=== PATIENT | male | born 1940 | race Caucasian/White ===

== ENCOUNTER 2022-07-05 18:13 | Emergency (ER) | payer OTHER, MEDICARE, MEDICAID ==
[2022-07-05] MEDS ORDERED: Sodium Chloride 0.9% 500 ML ONE ×2 (18:57→20:24)
[2022-07-05] MEDS ORDERED: Fentanyl 100 MCG/2 ML VIAL ONE (18:57)
[2022-07-05 19:30] LABS: Band 3 % (5-11); Eosinophils 3 % (0-10); Giant Platelets SLIGHT; Hemoglobin 14.1 g/dL (14.0-18.0); Large Platelets SLIGHT; Lymphocytes 5 % (21-51); MDiff Complete? YES; Mean Corpuscular HGB CONC 32.1 g/dL (32.0-36.0); Mean Corpuscular Hemoglobin 31.1 pg (27.0-31.0); Mean Platelet Volume 14.8 fL (7.4-10.4); Monocytes 6 % (0-10); Neutrophil 82 % (42-75); Platelet Count 241 thou/uL (130-400); Platelet Morphology Comment Appears Adequate; RBC Distribution Width 12.6 % (11.5-14.5); RBC Morphology Normal; Reactive Lymphocytes 1 % (0-10); Red Blood Cell (RBC) Count 4.52 mill/uL (4.70-6.10); White Blood Cell (WBC) Count 20.9 thou/uL (4.8-10.8)
[2022-07-05 19:33] LABS: ALT (SGPT) 15 U/L (8-55); AST (SGOT) 23 U/L (5-34); Alkaline Phosphatase 133 U/L (40-110); Anion Gap 17 mmol/L (10-20); BUN (Urea Nitrogen) 18 mg/dL (8.4-25.7); Bilirubin, Total 1.6 mg/dL (0.2-1.2); CK (CPK) 420 U/L (30-200); Calc. Creatinine Clearance 0 mL/min (70-130); Calcium 9.6 mg/dL (7.8-10.44); Carbon Dioxide 21 mmol/L (23-31); Chloride 107 mmol/L (98-107); Estimated GFR 58; Globulin 3.4 g/dL (2.4-3.5); Glucose 129 mg/dL (83-110); Protein, Total 7.4 g/dL (5.8-8.1); Sodium 141 mmol/L (136-145)
[2022-07-05 21:00] LABS: Bilirubin Negative (Negative); Blood, Urine Negative (Negative); Clarity Clear (Clear); Glucose, Urine (Dipstick) Negative (Negative); Ketone, Urine Negative (Negative); Leukocyte Negative (Negative); Nitrite Negative (Negative); Protein, Urine (Dipstick) Trace mg/dL (Neg-Trace); Specific Gravity, Urine 1.015 (1.005-1.030); Urobilinogen 0.2 mg/dL (Less than 2); pH, Urine 5.5 (5.0-9.0)
[2022-07-05] MEDS ORDERED: HYDROcodone/Acetaminophen 5/325 mg Tablet ONE (23:22)
== END 2022-07-05 23:34 | disposition short-term general hospital (02) ==
LOC: MADERS 18:13
DX: S72.111A Displaced fracture of greater trochanter of right femur, initial encounter for closed fracture (principal); S72.012A Unspecified intracapsular fracture of left femur, initial encounter for closed fracture; E86.0 Dehydration; R94.31 Abnormal electrocardiogram [ECG] [EKG]; I10 Essential (primary) hypertension; H54.7 Unspecified visual loss; W01.0XXA Fall on same level from slipping, tripping and stumbling without subsequent striking against object, initial encounter; Y92.009 Unspecified place in unspecified non-institutional (private) residence as the place of occurrence of the external cause; Z79.82 Long term (current) use of aspirin
CPT/HCPCS: 36415; 71045; 72170; 80053; 81003; 82550; 85025; 87086; 93005; 94760; 96361; 96374; J3010; J7030

== ENCOUNTER 2022-07-13 14:03 | Inpatient (IN) | payer MEDICARE, MEDICAID ==
[2022-07-13] MEDS ORDERED: traMADol HCl 50 MG TAB PO PRN (17:06)
[2022-07-13] MEDS: Acetaminophen 500 MG TAB PO SCH ×2 (17:50→23:29)
[2022-07-13] MEDS ORDERED: BRINZOLAMIDE 1% EA EYE SCH (21:00)
[2022-07-13] MEDS ORDERED: Timolol 0.5% Ophth Soln 5 ml Bottle EA EYE SCH ×2 (21:00)
[2022-07-13] MEDS ORDERED: Brinzolamide 1% Ophth SUSP 10 ml Bottle EA EYE SCH ×2 (21:00→22:00)
[2022-07-13] MEDS ORDERED: Brimonidine Tartrate 0.2% Ophth Soln 5 ml Bottle EA EYE SCH (21:00)
[2022-07-13] MEDS: Aspirin 81 mg Enteric Coated Tablet PO SCH (21:07)
[2022-07-13] MEDS: Melatonin 3 MG TAB PO SCH (21:07)
[2022-07-13] MEDS: [UNRECOGNIZED DRUG - OTHER] EA EYE SCH (21:10)
[2022-07-14] MEDS: Acetaminophen 500 MG TAB PO SCH ×3 (05:17→17:24)
[2022-07-14 05:21] LABS: Hemoglobin 11.7 g/dL (14.0-18.0); Mean Corpuscular HGB CONC 32.2 g/dL (32.0-36.0); Mean Corpuscular Volume 96.4 fL (78.0-98.0); Mean Platelet Volume 10.7 fL (7.4-10.4); Platelet Count 400 thou/uL (130-400); Red Blood Cell (RBC) Count 3.77 mill/uL (4.70-6.10); White Blood Cell (WBC) Count 13.3 thou/uL (4.8-10.8)
[2022-07-14 05:44] LABS: Anion Gap 15 mmol/L (10-20); BUN (Urea Nitrogen) 19 mg/dL (8.4-25.7); Calc. Creatinine Clearance 52 mL/min (70-130); Calcium 8.7 mg/dL (7.8-10.44); Carbon Dioxide 22 mmol/L (23-31); Chloride 106 mmol/L (98-107); Estimated GFR 74; Glucose 139 mg/dL (83-110); Potassium 3.5 mmol/L (3.5-5.1); Sodium 139 mmol/L (136-145)
[2022-07-14] MEDS: Aspirin 81 mg Enteric Coated Tablet PO SCH ×2 (08:48→21:38)
[2022-07-14] MEDS: [UNRECOGNIZED DRUG - OTHER] EA EYE SCH ×2 (08:49→21:38)
[2022-07-14] MEDS: Brinzolamide 1% Ophth SUSP 10 ml Bottle EA EYE SCH ×2 (08:49→21:38)
[2022-07-14] MEDS: Melatonin 3 MG TAB PO SCH (21:38)
[2022-07-15] MEDS: Acetaminophen 500 MG TAB PO SCH ×5 (00:16→23:02)
[2022-07-15] MEDS: Aspirin 81 mg Enteric Coated Tablet PO SCH ×2 (08:24→21:07)
[2022-07-15] MEDS: Ferrous Sulfate 325 MG TAB PO SCH (08:24)
[2022-07-15] MEDS: Brinzolamide 1% Ophth SUSP 10 ml Bottle EA EYE SCH ×2 (08:27→21:11)
[2022-07-15] MEDS: [UNRECOGNIZED DRUG - OTHER] EA EYE SCH ×2 (08:28→21:30)
[2022-07-15] MEDS: Melatonin 3 MG TAB PO SCH (21:07)
[2022-07-16] MEDS: Acetaminophen 500 MG TAB PO SCH ×4 (05:44→23:00)
[2022-07-16] MEDS: [UNRECOGNIZED DRUG - OTHER] EA EYE SCH ×2 (08:42→23:35)
[2022-07-16] MEDS: Brinzolamide 1% Ophth SUSP 10 ml Bottle EA EYE SCH ×2 (08:42→20:40)
[2022-07-16] MEDS: Aspirin 81 mg Enteric Coated Tablet PO SCH ×2 (08:42→20:39)
[2022-07-16] MEDS: Ferrous Sulfate 325 MG TAB PO SCH (08:42)
[2022-07-16] MEDS: Melatonin 3 MG TAB PO SCH (20:39)
[2022-07-17] MEDS: Acetaminophen 500 MG TAB PO SCH ×4 (05:30→22:42)
[2022-07-17] MEDS: Ferrous Sulfate 325 MG TAB PO SCH (08:26)
[2022-07-17] MEDS: Aspirin 81 mg Enteric Coated Tablet PO SCH ×2 (08:27→20:48)
[2022-07-17] MEDS: Brinzolamide 1% Ophth SUSP 10 ml Bottle EA EYE SCH ×2 (08:31→20:48)
[2022-07-17] MEDS: [UNRECOGNIZED DRUG - OTHER] EA EYE SCH ×2 (09:06→20:48)
[2022-07-18] MEDS: Melatonin 3 MG TAB PO PRN (01:44)
[2022-07-18] MEDS: Acetaminophen 500 MG TAB PO SCH ×4 (05:39→23:30)
[2022-07-18] MEDS: Ferrous Sulfate 325 MG TAB PO SCH (08:24)
[2022-07-18] MEDS: Aspirin 81 mg Enteric Coated Tablet PO SCH ×2 (08:24→20:21)
[2022-07-18] MEDS: [UNRECOGNIZED DRUG - OTHER] EA EYE SCH ×2 (08:25→20:22)
[2022-07-18] MEDS: Brinzolamide 1% Ophth SUSP 10 ml Bottle EA EYE SCH ×2 (08:25→20:22)
[2022-07-19] MEDS: Acetaminophen 500 MG TAB PO SCH ×3 (05:29→17:31)
[2022-07-19] MEDS: Ferrous Sulfate 325 MG TAB PO SCH (08:02)
[2022-07-19] MEDS: Aspirin 81 mg Enteric Coated Tablet PO SCH ×2 (08:02→20:58)
[2022-07-19] MEDS: Brinzolamide 1% Ophth SUSP 10 ml Bottle EA EYE SCH ×2 (08:03→20:58)
[2022-07-19] MEDS: [UNRECOGNIZED DRUG - OTHER] EA EYE SCH ×2 (08:03→20:59)
[2022-07-19] MEDS: Melatonin 3 MG TAB PO PRN (20:58)
[2022-07-20] MEDS: Acetaminophen 500 MG TAB PO SCH ×5 (00:45→23:39)
[2022-07-20] MEDS: Aspirin 81 mg Enteric Coated Tablet PO SCH ×2 (08:32→21:33)
[2022-07-20] MEDS: Brinzolamide 1% Ophth SUSP 10 ml Bottle EA EYE SCH (08:33)
[2022-07-20] MEDS: [UNRECOGNIZED DRUG - OTHER] EA EYE SCH ×2 (08:33→21:33)
[2022-07-20] MEDS: Ferrous Sulfate 325 MG TAB PO SCH (08:33)
[2022-07-20] MEDS ORDERED: Senokot S 8.6-50 MG TAB PO PRN (12:33)
[2022-07-20] MEDS ORDERED: Senokot S 8.6-50 MG TAB PO SCH (21:00)
[2022-07-20] MEDS: BRINZOLAMIDE 1% EA EYE SCH (21:33)
[2022-07-21] MEDS: Acetaminophen 500 MG TAB PO SCH ×4 (06:00→23:35)
[2022-07-21] MEDS: Aspirin 81 mg Enteric Coated Tablet PO SCH ×2 (08:31→21:10)
[2022-07-21] MEDS: Polyethylene Glycol 3350 17 GM Packet PER TUBE SCH (08:31)
[2022-07-21] MEDS: Ferrous Sulfate 325 MG TAB PO SCH (08:31)
[2022-07-21] MEDS: [UNRECOGNIZED DRUG - OTHER] EA EYE SCH ×2 (08:32→21:10)
[2022-07-21] MEDS: BRINZOLAMIDE 1% EA EYE SCH ×2 (08:32→21:10)
[2022-07-22] MEDS: Acetaminophen 500 MG TAB PO SCH ×3 (05:51→17:08)
[2022-07-22] MEDS: Aspirin 81 mg Enteric Coated Tablet PO SCH ×2 (08:48→21:25)
[2022-07-22] MEDS: Ferrous Sulfate 325 MG TAB PO SCH (08:48)
[2022-07-22] MEDS: Polyethylene Glycol 3350 17 GM Packet PER TUBE SCH (08:48)
[2022-07-22] MEDS: BRINZOLAMIDE 1% EA EYE SCH ×2 (08:56→21:20)
[2022-07-22] MEDS: [UNRECOGNIZED DRUG - OTHER] EA EYE SCH (08:56)
[2022-07-22] MEDS: Timolol 0.5% Ophth Soln 5 ml Bottle EA EYE SCH (21:23)
[2022-07-23] MEDS: Brimonidine Tartrate 0.2% Ophth Soln 5 ml Bottle EA EYE SCH ×3 (00:51→20:10)
[2022-07-23] MEDS: Acetaminophen 500 MG TAB PO SCH ×5 (00:52→22:59)
[2022-07-23] MEDS: Ferrous Sulfate 325 MG TAB PO SCH (08:18)
[2022-07-23] MEDS: Aspirin 81 mg Enteric Coated Tablet PO SCH ×2 (08:18→20:09)
[2022-07-23] MEDS: BRINZOLAMIDE 1% EA EYE SCH ×2 (08:18→20:23)
[2022-07-23] MEDS: Polyethylene Glycol 3350 17 GM Packet PER TUBE SCH (08:24)
[2022-07-23] MEDS: Timolol 0.5% Ophth Soln 5 ml Bottle EA EYE SCH ×2 (10:53→20:22)
[2022-07-23] MEDS: Melatonin 3 MG TAB PO PRN (23:00)
[2022-07-24 05:29] LABS: #Basophils 0.1 thou/uL (0.0-0.2); #Eosinphils 0.4 thou/uL (0.0-0.7); #Lymphocytes 3.7 thou/uL (1.20-3.40); #Monocytes 1.4 thou/uL (0.11-0.59); #Neutrophils 5.6 thou/uL (1.40-6.50); %Basophils 1.3 % (0.0-1.0); %Eosinophils 3.7 % (0.0-10.0); %Lymphocytes 32.5 % (21.0-51.0); %Monocytes 12.8 % (0.0-10.0); %Neutrophils 49.8 % (42.0-75.0); Hemoglobin 11.3 g/dL (14.0-18.0); Mean Corpuscular HGB CONC 31.9 g/dL (32.0-36.0); Mean Corpuscular Hemoglobin 31.7 pg (27.0-31.0); Mean Corpuscular Volume 99.6 fL (78.0-98.0); Mean Platelet Volume 12.4 fL (7.4-10.4); Platelet Count 306 thou/uL (130-400); RBC Distribution Width 15.1 % (11.5-14.5); Red Blood Cell (RBC) Count 3.54 mill/uL (4.70-6.10); White Blood Cell (WBC) Count 11.3 thou/uL (4.8-10.8)
[2022-07-24] MEDS: Acetaminophen 500 MG TAB PO SCH ×4 (06:29→23:59)
[2022-07-24] MEDS: Aspirin 81 mg Enteric Coated Tablet PO SCH ×2 (08:52→21:00)
[2022-07-24] MEDS: Polyethylene Glycol 3350 17 GM Packet PER TUBE SCH (08:52)
[2022-07-24] MEDS: Brimonidine Tartrate 0.2% Ophth Soln 5 ml Bottle EA EYE SCH ×2 (08:52→21:00)
[2022-07-24] MEDS: Ferrous Sulfate 325 MG TAB PO SCH (08:52)
[2022-07-24] MEDS: BRINZOLAMIDE 1% EA EYE SCH ×2 (08:54→21:01)
[2022-07-24] MEDS: Timolol 0.5% Ophth Soln 5 ml Bottle EA EYE SCH ×2 (08:54→21:02)
[2022-07-24] MEDS ORDERED: Amlodipine 5 MG TAB PO SCH (13:00)
[2022-07-24] MEDS: Melatonin 3 MG TAB PO PRN (21:00)
[2022-07-25] MEDS: Acetaminophen 500 MG TAB PO SCH ×3 (05:26→17:28)
[2022-07-25] MEDS: Amlodipine 5 MG TAB PO SCH (08:43)
[2022-07-25] MEDS: Ferrous Sulfate 325 MG TAB PO SCH (08:43)
[2022-07-25] MEDS: Aspirin 81 mg Enteric Coated Tablet PO SCH ×2 (08:43→20:55)
[2022-07-25] MEDS: Brimonidine Tartrate 0.2% Ophth Soln 5 ml Bottle EA EYE SCH ×2 (08:44→20:55)
[2022-07-25] MEDS: Timolol 0.5% Ophth Soln 5 ml Bottle EA EYE SCH ×2 (08:44→20:55)
[2022-07-25] MEDS: Polyethylene Glycol 3350 17 GM Packet PER TUBE SCH (08:45)
[2022-07-25] MEDS: BRINZOLAMIDE 1% EA EYE SCH ×2 (08:45→20:57)
[2022-07-25] MEDS ORDERED: Amlodipine 5 MG TAB PO SCH (09:00)
[2022-07-25] MEDS: Melatonin 3 MG TAB PO PRN (20:55)
[2022-07-26] MEDS: Acetaminophen 500 MG TAB PO SCH ×4 (01:01→17:23)
[2022-07-26] MEDS: Amlodipine 5 MG TAB PO SCH (08:29)
[2022-07-26] MEDS: Aspirin 81 mg Enteric Coated Tablet PO SCH ×2 (08:29→20:00)
[2022-07-26] MEDS: Ferrous Sulfate 325 MG TAB PO SCH (08:29)
[2022-07-26] MEDS: Polyethylene Glycol 3350 17 GM Packet PER TUBE SCH (08:30)
[2022-07-26] MEDS: Brimonidine Tartrate 0.2% Ophth Soln 5 ml Bottle EA EYE SCH ×2 (08:30→20:15)
[2022-07-26] MEDS: Timolol 0.5% Ophth Soln 5 ml Bottle EA EYE SCH ×2 (08:31→21:34)
[2022-07-26] MEDS: BRINZOLAMIDE 1% EA EYE SCH ×2 (08:33→20:00)
[2022-07-26] MEDS: Melatonin 3 MG TAB PO PRN (20:00)
[2022-07-27] MEDS: Acetaminophen 500 MG TAB PO SCH ×4 (01:56→17:49)
[2022-07-27] MEDS: Amlodipine 5 MG TAB PO SCH (08:19)
[2022-07-27] MEDS: Ferrous Sulfate 325 MG TAB PO SCH (08:19)
[2022-07-27] MEDS: Timolol 0.5% Ophth Soln 5 ml Bottle EA EYE SCH ×2 (08:19→22:10)
[2022-07-27] MEDS: Brimonidine Tartrate 0.2% Ophth Soln 5 ml Bottle EA EYE SCH ×2 (08:19→20:22)
[2022-07-27] MEDS: BRINZOLAMIDE 1% EA EYE SCH ×2 (08:20→20:21)
[2022-07-27] MEDS: Polyethylene Glycol 3350 17 GM Packet PER TUBE SCH (08:20)
[2022-07-27] MEDS: Aspirin 81 mg Enteric Coated Tablet PO SCH ×2 (08:20→20:21)
[2022-07-27] MEDS: Melatonin 3 MG TAB PO PRN (20:21)
[2022-07-28] MEDS: Amlodipine 5 MG TAB PO SCH (08:08)
[2022-07-28] MEDS: Polyethylene Glycol 3350 17 GM Packet PER TUBE SCH (08:08)
[2022-07-28] MEDS: Aspirin 81 mg Enteric Coated Tablet PO SCH ×2 (08:08→20:24)
[2022-07-28] MEDS: Ferrous Sulfate 325 MG TAB PO SCH (08:08)
[2022-07-28] MEDS: BRINZOLAMIDE 1% EA EYE SCH ×2 (08:08→21:07)
[2022-07-28] MEDS: Brimonidine Tartrate 0.2% Ophth Soln 5 ml Bottle EA EYE SCH ×2 (08:41→20:24)
[2022-07-28] MEDS: Timolol 0.5% Ophth Soln 5 ml Bottle EA EYE SCH ×2 (08:49→20:49)
[2022-07-29] MEDS: Amlodipine 5 MG TAB PO SCH (08:54)
[2022-07-29] MEDS: Ferrous Sulfate 325 MG TAB PO SCH (08:55)
[2022-07-29] MEDS: BRINZOLAMIDE 1% EA EYE SCH ×2 (08:55→20:31)
[2022-07-29] MEDS: Aspirin 81 mg Enteric Coated Tablet PO SCH ×2 (08:55→20:31)
[2022-07-29] MEDS: Timolol 0.5% Ophth Soln 5 ml Bottle EA EYE SCH ×2 (08:56→20:41)
[2022-07-29] MEDS: Brimonidine Tartrate 0.2% Ophth Soln 5 ml Bottle EA EYE SCH ×2 (08:56→21:00)
[2022-07-29] MEDS: Polyethylene Glycol 3350 17 GM Packet PER TUBE SCH (08:57)
[2022-07-29] MEDS: Melatonin 3 MG TAB PO PRN (20:31)
[2022-07-30] MEDS: Ferrous Sulfate 325 MG TAB PO SCH (08:16)
[2022-07-30] MEDS: Aspirin 81 mg Enteric Coated Tablet PO SCH ×2 (08:16→20:00)
[2022-07-30] MEDS: Amlodipine 5 MG TAB PO SCH (08:16)
[2022-07-30] MEDS: Brimonidine Tartrate 0.2% Ophth Soln 5 ml Bottle EA EYE SCH ×2 (08:17→20:02)
[2022-07-30] MEDS: Timolol 0.5% Ophth Soln 5 ml Bottle EA EYE SCH ×2 (08:18→20:10)
[2022-07-30] MEDS: Polyethylene Glycol 3350 17 GM Packet PER TUBE SCH (08:19)
[2022-07-30] MEDS: BRINZOLAMIDE 1% EA EYE SCH ×2 (08:20→20:03)
[2022-07-30] MEDS: Acetaminophen 500 MG TAB PO PRN (15:01)
[2022-07-31] MEDS: Ferrous Sulfate 325 MG TAB PO SCH (08:59)
[2022-07-31] MEDS: Amlodipine 5 MG TAB PO SCH (08:59)
[2022-07-31] MEDS: Timolol 0.5% Ophth Soln 5 ml Bottle EA EYE SCH ×2 (08:59→21:05)
[2022-07-31] MEDS: Aspirin 81 mg Enteric Coated Tablet PO SCH ×2 (08:59→21:06)
[2022-07-31] MEDS: Polyethylene Glycol 3350 17 GM Packet PER TUBE SCH (09:00)
[2022-07-31] MEDS: BRINZOLAMIDE 1% EA EYE SCH ×2 (09:00→21:05)
[2022-07-31] MEDS: Brimonidine Tartrate 0.2% Ophth Soln 5 ml Bottle EA EYE SCH ×2 (09:00→21:05)
[2022-07-31] MEDS: Acetaminophen 500 MG TAB PO PRN (21:06)
[2022-08-01] MEDS: Aspirin 81 mg Enteric Coated Tablet PO SCH ×2 (08:25→21:07)
[2022-08-01] MEDS: Timolol 0.5% Ophth Soln 5 ml Bottle EA EYE SCH ×2 (08:25→21:33)
[2022-08-01] MEDS: Amlodipine 5 MG TAB PO SCH (08:25)
[2022-08-01] MEDS: Ferrous Sulfate 325 MG TAB PO SCH (08:25)
[2022-08-01] MEDS: Brimonidine Tartrate 0.2% Ophth Soln 5 ml Bottle EA EYE SCH ×2 (08:26→21:07)
[2022-08-01] MEDS: BRINZOLAMIDE 1% EA EYE SCH ×2 (08:26→21:08)
[2022-08-01] MEDS: Polyethylene Glycol 3350 17 GM Packet PER TUBE SCH (08:27)
[2022-08-01] MEDS: Melatonin 3 MG TAB PO PRN (21:07)
[2022-08-02] MEDS: Amlodipine 5 MG TAB PO SCH (08:07)
[2022-08-02] MEDS: Timolol 0.5% Ophth Soln 5 ml Bottle EA EYE SCH ×2 (08:08→20:20)
[2022-08-02] MEDS: Aspirin 81 mg Enteric Coated Tablet PO SCH ×2 (08:08→20:20)
[2022-08-02] MEDS: Brimonidine Tartrate 0.2% Ophth Soln 5 ml Bottle EA EYE SCH ×2 (08:08→20:21)
[2022-08-02] MEDS: Ferrous Sulfate 325 MG TAB PO SCH (08:08)
[2022-08-02] MEDS: BRINZOLAMIDE 1% EA EYE SCH ×2 (08:09→20:20)
[2022-08-02] MEDS: Polyethylene Glycol 3350 17 GM Packet PER TUBE SCH (08:09)
[2022-08-02] MEDS: Melatonin 3 MG TAB PO PRN (20:20)
[2022-08-02] MEDS: Acetaminophen 500 MG TAB PO PRN (20:20)
[2022-08-03] MEDS: Ferrous Sulfate 325 MG TAB PO SCH (08:10)
[2022-08-03] MEDS: Aspirin 81 mg Enteric Coated Tablet PO SCH ×2 (08:10→21:14)
[2022-08-03] MEDS: Brimonidine Tartrate 0.2% Ophth Soln 5 ml Bottle EA EYE SCH ×2 (08:11→21:13)
[2022-08-03] MEDS: Timolol 0.5% Ophth Soln 5 ml Bottle EA EYE SCH ×2 (08:11→21:13)
[2022-08-03] MEDS: BRINZOLAMIDE 1% EA EYE SCH ×2 (08:11→21:14)
[2022-08-03] MEDS: Amlodipine 5 MG TAB PO SCH (08:11)
[2022-08-03] MEDS: Polyethylene Glycol 3350 17 GM Packet PER TUBE SCH (08:14)
[2022-08-03] MEDS ORDERED: Emollient 15 oz bottle 450 ML, Triamcinolone Acetonide 200 MG TOP PRN ×2 (09:29→09:31)
[2022-08-03] MEDS ORDERED: Triple Antibiotic Oint 1 GM Packet TOP SCH ×2 (09:30→10:00)
[2022-08-03] MEDS ORDERED: Brinzolamide 1% Ophth SUSP 10 ml Bottle EA EYE SCH (21:00)
[2022-08-03] MEDS: Triple Antibiotic Oint 1 GM Packet TOP SCH (21:14)
[2022-08-03] MEDS: hydrOXYzine 25 MG TAB PO PRN (21:14)
[2022-08-03] MEDS: Emollient 15 oz bottle 450 ML, Triamcinolone Acetonide 200 MG TOP SCH (21:21)
[2022-08-04] MEDS: Ferrous Sulfate 325 MG TAB PO SCH (08:02)
[2022-08-04] MEDS: Amlodipine 5 MG TAB PO SCH (08:02)
[2022-08-04] MEDS: Brimonidine Tartrate 0.2% Ophth Soln 5 ml Bottle EA EYE SCH ×2 (08:02→20:28)
[2022-08-04] MEDS: Aspirin 81 mg Enteric Coated Tablet PO SCH ×2 (08:02→20:01)
[2022-08-04] MEDS: Triple Antibiotic Oint 1 GM Packet TOP SCH ×2 (08:02→20:01)
[2022-08-04] MEDS: BRINZOLAMIDE 1% EA EYE SCH ×2 (08:03→20:08)
[2022-08-04] MEDS: Timolol 0.5% Ophth Soln 5 ml Bottle EA EYE SCH ×2 (08:03→20:35)
[2022-08-04] MEDS: Polyethylene Glycol 3350 17 GM Packet PER TUBE SCH (08:04)
[2022-08-04] MEDS: Emollient 15 oz bottle 450 ML, Triamcinolone Acetonide 200 MG TOP SCH ×2 (08:04→20:24)
[2022-08-05] MEDS: hydrOXYzine 25 MG TAB PO PRN ×2 (02:39→22:37)
[2022-08-05] MEDS: Timolol 0.5% Ophth Soln 5 ml Bottle EA EYE SCH ×2 (08:03→20:38)
[2022-08-05] MEDS: Triple Antibiotic Oint 1 GM Packet TOP SCH ×2 (08:03→20:37)
[2022-08-05] MEDS: Ferrous Sulfate 325 MG TAB PO SCH (08:05)
[2022-08-05] MEDS: Brimonidine Tartrate 0.2% Ophth Soln 5 ml Bottle EA EYE SCH ×2 (08:05→20:37)
[2022-08-05] MEDS: Aspirin 81 mg Enteric Coated Tablet PO SCH ×2 (08:05→20:37)
[2022-08-05] MEDS: Amlodipine 5 MG TAB PO SCH (08:05)
[2022-08-05] MEDS: BRINZOLAMIDE 1% EA EYE SCH ×2 (08:06→20:47)
[2022-08-05] MEDS: Polyethylene Glycol 3350 17 GM Packet PER TUBE SCH (08:06)
[2022-08-05] MEDS: Emollient 15 oz bottle 450 ML, Triamcinolone Acetonide 200 MG TOP SCH ×2 (08:06→21:01)
[2022-08-05] MEDS: Melatonin 3 MG TAB PO PRN (22:37)
[2022-08-06] MEDS: Amlodipine 5 MG TAB PO SCH (08:37)
[2022-08-06] MEDS: Triple Antibiotic Oint 1 GM Packet TOP SCH ×2 (08:37→20:06)
[2022-08-06] MEDS: Ferrous Sulfate 325 MG TAB PO SCH (08:38)
[2022-08-06] MEDS: Timolol 0.5% Ophth Soln 5 ml Bottle EA EYE SCH ×2 (08:38→20:11)
[2022-08-06] MEDS: Aspirin 81 mg Enteric Coated Tablet PO SCH ×2 (08:38→20:06)
[2022-08-06] MEDS: Brimonidine Tartrate 0.2% Ophth Soln 5 ml Bottle EA EYE SCH ×2 (08:38→20:08)
[2022-08-06] MEDS: BRINZOLAMIDE 1% EA EYE SCH ×2 (08:39→20:15)
[2022-08-06] MEDS: Polyethylene Glycol 3350 17 GM Packet PER TUBE SCH (08:39)
[2022-08-06] MEDS: Emollient 15 oz bottle 450 ML, Triamcinolone Acetonide 200 MG TOP SCH ×2 (08:39→20:14)
[2022-08-07] MEDS: Ferrous Sulfate 325 MG TAB PO SCH (08:45)
[2022-08-07] MEDS: Amlodipine 5 MG TAB PO SCH (08:46)
[2022-08-07] MEDS: Brimonidine Tartrate 0.2% Ophth Soln 5 ml Bottle EA EYE SCH ×2 (08:47→21:07)
[2022-08-07] MEDS: Timolol 0.5% Ophth Soln 5 ml Bottle EA EYE SCH ×2 (08:48→21:13)
[2022-08-07] MEDS: Aspirin 81 mg Enteric Coated Tablet PO SCH ×2 (08:49→21:06)
[2022-08-07] MEDS: Polyethylene Glycol 3350 17 GM Packet PER TUBE SCH (08:50)
[2022-08-07] MEDS: BRINZOLAMIDE 1% EA EYE SCH ×2 (08:50→21:14)
[2022-08-07] MEDS: Emollient 15 oz bottle 450 ML, Triamcinolone Acetonide 200 MG TOP SCH ×2 (08:50→21:13)
[2022-08-07] MEDS: Triple Antibiotic Oint 1 GM Packet TOP SCH ×2 (09:37→21:14)
[2022-08-08] MEDS: Amlodipine 5 MG TAB PO SCH (08:31)
[2022-08-08] MEDS: Aspirin 81 mg Enteric Coated Tablet PO SCH ×2 (08:31→21:06)
[2022-08-08] MEDS: Polyethylene Glycol 3350 17 GM Packet PER TUBE SCH (08:31)
[2022-08-08] MEDS: Ferrous Sulfate 325 MG TAB PO SCH (08:31)
[2022-08-08] MEDS: BRINZOLAMIDE 1% EA EYE SCH ×2 (08:32→21:08)
[2022-08-08] MEDS: Triple Antibiotic Oint 1 GM Packet TOP SCH ×2 (08:32→21:09)
[2022-08-08] MEDS: Timolol 0.5% Ophth Soln 5 ml Bottle EA EYE SCH ×2 (08:33→21:07)
[2022-08-08] MEDS: Emollient 15 oz bottle 450 ML, Triamcinolone Acetonide 200 MG TOP SCH ×2 (08:34→21:07)
[2022-08-08] MEDS: Brimonidine Tartrate 0.2% Ophth Soln 5 ml Bottle EA EYE SCH ×2 (08:38→21:07)
[2022-08-08 19:58] VITALS: TEMP 98.2
[2022-08-08] MEDS: Melatonin 3 MG TAB PO PRN (21:03)
[2022-08-09 08:39] VITALS: BP 180/96
[2022-08-09] MEDS: Polyethylene Glycol 3350 17 GM Packet PER TUBE SCH (08:46)
[2022-08-09] MEDS: Brimonidine Tartrate 0.2% Ophth Soln 5 ml Bottle EA EYE SCH (08:47)
[2022-08-09] MEDS: Ferrous Sulfate 325 MG TAB PO SCH (08:47)
[2022-08-09] MEDS: Aspirin 81 mg Enteric Coated Tablet PO SCH (08:47)
[2022-08-09] MEDS: Amlodipine 5 MG TAB PO SCH (08:47)
[2022-08-09] MEDS: Timolol 0.5% Ophth Soln 5 ml Bottle EA EYE SCH (08:48)
[2022-08-09] MEDS: Emollient 15 oz bottle 450 ML, Triamcinolone Acetonide 200 MG TOP SCH (08:49)
[2022-08-09] MEDS: BRINZOLAMIDE 1% EA EYE SCH (08:49)
[2022-08-09] MEDS: Triple Antibiotic Oint 1 GM Packet TOP SCH (08:52)
== END 2022-08-09 17:45 | disposition home health service (06) | DRG 560 ==
LOC: MADMS 14:36
PROVIDERS: ADMIT Family Medicine; ATTEND Family Medicine
DX: Z47.1 Aftercare following joint replacement surgery (principal); D62 Acute posthemorrhagic anemia; Z20.822 Contact with and (suspected) exposure to COVID-19; I10 Essential (primary) hypertension; H40.9 Unspecified glaucoma; Z60.2 Problems related to living alone; R53.81 Other malaise; H54.7 Unspecified visual loss; F41.9 Anxiety disorder, unspecified; G47.00 Insomnia, unspecified; Z79.899 Other long term (current) drug therapy; Z90.49 Acquired absence of other specified parts of digestive tract; Z98.49 Cataract extraction status, unspecified eye; S72.111D Displaced fracture of greater trochanter of right femur, subsequent encounter for closed fracture with routine healing; Z79.82 Long term (current) use of aspirin
CPT/HCPCS: 36415; 80048; 85025; 85027; 87811; J3301; U0003; U0005

== ENCOUNTER 2022-08-24 12:17 | Emergency (ER) | payer MEDICARE, MEDICAID ==
[2022-08-24] MEDS ORDERED: Cyclobenzaprine 10 MG TAB ONE (13:21)
== END 2022-08-24 13:30 | disposition home or self-care (01) ==
LOC: MADERS 12:17
DX: M25.552 Pain in left hip (principal); I10 Essential (primary) hypertension; Z79.82 Long term (current) use of aspirin; Z98.890 Other specified postprocedural states

== ENCOUNTER 2022-08-25 12:29 | Emergency (ER) | payer MEDICARE, MEDICAID ==
[2022-08-25] MEDS ORDERED: HYDROcodone/Acetaminophen 5/325 mg Tablet ONE (13:03)
[2022-08-25 15:57] LABS: INR-International Normal Ratio 1.1; Prothrombin Time 14.3 sec (12.0-14.7)
[2022-08-25 15:58] LABS: PTT 31.9 sec (22.9-36.1)
[2022-08-25 16:08] LABS: #Basophils 0.2 thou/uL (0.0-0.2); #Eosinphils 0.4 thou/uL (0.0-0.7); #Lymphocytes 3.5 thou/uL (1.20-3.40); #Monocytes 1.1 thou/uL (0.11-0.59); #Neutrophils 7.7 thou/uL (1.40-6.50); %Basophils 1.3 % (0.0-1.0); %Eosinophils 2.8 % (0.0-10.0); %Lymphocytes 27.2 % (21.0-51.0); %Monocytes 8.9 % (0.0-10.0); %Neutrophils 59.9 % (42.0-75.0); Hemoglobin 15.1 g/dL (14.0-18.0); Mean Corpuscular HGB CONC 32.2 g/dL (32.0-36.0); Mean Corpuscular Hemoglobin 32.4 pg (27.0-31.0); Mean Corpuscular Volume 100.7 fL (78.0-98.0); Platelet Count 255 thou/uL (130-400); RBC Distribution Width 13.5 % (11.5-14.5); Red Blood Cell (RBC) Count 4.66 mill/uL (4.70-6.10); White Blood Cell (WBC) Count 12.8 thou/uL (4.8-10.8)
[2022-08-25 16:23] LABS: Anion Gap 15 mmol/L (10-20); BUN (Urea Nitrogen) 20 mg/dL (8.4-25.7); Calc. Creatinine Clearance 0 mL/min (70-130); Calcium 9.7 mg/dL (7.8-10.44); Carbon Dioxide 25 mmol/L (23-31); Chloride 106 mmol/L (98-107); Estimated GFR 65; Glucose 82 mg/dL (83-110); Potassium 3.6 mmol/L (3.5-5.1); Sodium 142 mmol/L (136-145)
[2022-08-25 16:44] LABS: SARS-CoV-2 NAA Rapid Test Not Detected (NotDetected)
== END 2022-08-25 18:10 | disposition short-term general hospital (02) ==
LOC: MADERS 12:29
DX: T84.011A Broken internal left hip prosthesis, initial encounter (principal); I10 Essential (primary) hypertension; H40.9 Unspecified glaucoma; H54.8 Legal blindness, as defined in USA; Z20.822 Contact with and (suspected) exposure to COVID-19; Z79.82 Long term (current) use of aspirin; Z79.899 Other long term (current) drug therapy
CPT/HCPCS: 73552; 73564; 73700; 80048; 83735; 85025; 85610; 85730; 99285; U0002; 36415

== ENCOUNTER 2022-08-30 16:32 | Inpatient (IN) | payer MEDICARE, MEDICAID ==
[2022-08-30] MEDS ORDERED: Keri Lotion 15 oz BOT TOP PRN (20:08)
[2022-08-30] MEDS ORDERED: hydrOXYzine 25 MG TAB PO PRN (20:08)
[2022-08-30] MEDS ORDERED: Senokot S 8.6-50 MG TAB PO PRN (20:08)
[2022-08-30] MEDS ORDERED: Acetaminophen 325 MG TAB PO SCH (20:15)
[2022-08-30] MEDS ORDERED: Acetaminophen/Codeine 30-300mg Tablet PO SCH (20:15)
[2022-08-30] MEDS: Aspirin 81 mg Enteric Coated Tablet PO SCH (20:57)
[2022-08-30] MEDS: Timolol 0.5% Ophth Soln 5 ml Bottle EA EYE SCH (20:58)
[2022-08-30] MEDS: Brinzolamide 1% Ophth SUSP 10 ml Bottle EA EYE SCH (20:59)
[2022-08-30] MEDS: Latanoprost 0.005% Ophth Soln 2.5 ml Bottle EA EYE SCH (21:00)
[2022-08-30] MEDS: Brimonidine Tartrate 0.2% Ophth Soln 5 ml Bottle EA EYE SCH (21:00)
[2022-08-30] MEDS: Keri Lotion 15 oz BOT TOP SCH (21:01)
[2022-08-30] MEDS: Triamcinolone 40 MG/ML VIAL TOP SCH (21:07)
[2022-08-31] MEDS: Acetaminophen 325 MG TAB PO SCH ×4 (00:44→17:54)
[2022-08-31 05:32] LABS: #Basophils 0.1 thou/uL (0.0-0.2); #Monocytes 1.2 thou/uL (0.11-0.59); #Neutrophils 6.3 thou/uL (1.40-6.50); %Basophils 0.8 % (0.0-1.0); %Eosinophils 8.6 % (0.0-10.0); %Lymphocytes 25.6 % (21.0-51.0); %Monocytes 10.2 % (0.0-10.0); %Neutrophils 54.8 % (42.0-75.0); Hemoglobin 12.8 g/dL (14.0-18.0); Mean Corpuscular HGB CONC 33.4 g/dL (32.0-36.0); Mean Corpuscular Hemoglobin 33.2 pg (27.0-31.0); Mean Corpuscular Volume 99.5 fL (78.0-98.0); Mean Platelet Volume 12.1 fL (7.4-10.4); Platelet Count 308 thou/uL (130-400); RBC Distribution Width 13.1 % (11.5-14.5); Red Blood Cell (RBC) Count 3.85 mill/uL (4.70-6.10); White Blood Cell (WBC) Count 11.6 thou/uL (4.8-10.8)
[2022-08-31 05:51] LABS: Anion Gap 12 mmol/L (10-20); BUN (Urea Nitrogen) 16 mg/dL (8.4-25.7); Calc. Creatinine Clearance 59 mL/min (70-130); Calcium 9.4 mg/dL (7.8-10.44); Carbon Dioxide 23 mmol/L (23-31); Chloride 107 mmol/L (98-107); Estimated GFR 86; Glucose 101 mg/dL (83-110); Potassium 4.2 mmol/L (3.5-5.1); Sodium 138 mmol/L (136-145)
[2022-08-31] MEDS: Acetaminophen/Codeine 30-300mg Tablet PO SCH ×3 (05:59→17:54)
[2022-08-31] MEDS ORDERED: Amlodipine 5 MG TAB PO SCH (09:00)
[2022-08-31] MEDS ORDERED: FLU VACC QS2022-23(65YR UP)/PF 240 MCG/0.7 ML SYRINGE IM ONE (09:00)
[2022-08-31] MEDS ORDERED: Polyethylene Glycol 3350 17 GM Packet PO SCH (09:00)
[2022-08-31] MEDS: Amlodipine 5 MG TAB PO SCH (09:05)
[2022-08-31] MEDS: Aspirin 81 mg Enteric Coated Tablet PO SCH ×2 (09:06→21:25)
[2022-08-31] MEDS: Ferrous Sulfate 325 MG TAB PO SCH (09:06)
[2022-08-31] MEDS: Brimonidine Tartrate 0.2% Ophth Soln 5 ml Bottle EA EYE SCH ×2 (09:06→21:26)
[2022-08-31] MEDS: Brinzolamide 1% Ophth SUSP 10 ml Bottle EA EYE SCH ×2 (09:08→21:26)
[2022-08-31] MEDS: Keri Lotion 15 oz BOT TOP SCH (09:09)
[2022-08-31] MEDS: Timolol 0.5% Ophth Soln 5 ml Bottle EA EYE SCH ×2 (09:11→21:25)
[2022-08-31] MEDS ORDERED: Senokot S 8.6-50 MG TAB PO PRN (09:30)
[2022-08-31] MEDS ORDERED: Emollient 15 oz bottle 450 ML, Triamcinolone Acetonide 200 MG TOP PRN (09:30)
[2022-08-31] MEDS ORDERED: Polyethylene Glycol 3350 17 GM Packet PO PRN (09:30)
[2022-08-31] MEDS: Triamcinolone 40 MG/ML VIAL TOP SCH (15:48)
[2022-08-31] MEDS ORDERED: Lantiseptic Ointment 130 GM JAR TOP PRN (16:17)
[2022-08-31] MEDS: Lantiseptic Ointment 130 GM JAR TOP SCH (21:24)
[2022-08-31] MEDS: Latanoprost 0.005% Ophth Soln 2.5 ml Bottle EA EYE SCH (21:26)
[2022-08-31] MEDS: Emollient 15 oz bottle 450 ML, Triamcinolone Acetonide 200 MG TOP SCH (21:27)
[2022-09-01] MEDS: Acetaminophen 325 MG TAB PO SCH ×2 (00:46→06:10)
[2022-09-01] MEDS: Acetaminophen/Codeine 30-300mg Tablet PO SCH ×2 (00:46→06:17)
[2022-09-01] MEDS: Brimonidine Tartrate 0.2% Ophth Soln 5 ml Bottle EA EYE SCH ×2 (08:37→20:01)
[2022-09-01] MEDS: Amlodipine 5 MG TAB PO SCH (08:38)
[2022-09-01] MEDS: Ferrous Sulfate 325 MG TAB PO SCH (08:38)
[2022-09-01] MEDS: Aspirin 81 mg Enteric Coated Tablet PO SCH ×2 (08:38→20:01)
[2022-09-01] MEDS: Lantiseptic Ointment 130 GM JAR TOP SCH ×2 (08:44→20:03)
[2022-09-01] MEDS: Emollient 15 oz bottle 450 ML, Triamcinolone Acetonide 200 MG TOP SCH ×2 (08:45→20:03)
[2022-09-01] MEDS: Brinzolamide 1% Ophth SUSP 10 ml Bottle EA EYE SCH ×2 (10:29→20:45)
[2022-09-01] MEDS: Timolol 0.5% Ophth Soln 5 ml Bottle EA EYE SCH ×2 (10:29→20:42)
[2022-09-01] MEDS ORDERED: Acetaminophen/Codeine 30-300mg Tablet PO PRN (11:20)
[2022-09-01] MEDS: Latanoprost 0.005% Ophth Soln 2.5 ml Bottle EA EYE SCH (20:18)
[2022-09-02] MEDS: Brinzolamide 1% Ophth SUSP 10 ml Bottle EA EYE SCH ×2 (09:28→20:28)
[2022-09-02] MEDS: Timolol 0.5% Ophth Soln 5 ml Bottle EA EYE SCH ×2 (09:29→20:53)
[2022-09-02] MEDS: Brimonidine Tartrate 0.2% Ophth Soln 5 ml Bottle EA EYE SCH ×2 (09:29→20:54)
[2022-09-02] MEDS: Amlodipine 5 MG TAB PO SCH (09:30)
[2022-09-02] MEDS: Ferrous Sulfate 325 MG TAB PO SCH (09:31)
[2022-09-02] MEDS: Aspirin 81 mg Enteric Coated Tablet PO SCH ×2 (09:31→20:27)
[2022-09-02] MEDS: Emollient 15 oz bottle 450 ML, Triamcinolone Acetonide 200 MG TOP SCH ×2 (09:33→20:55)
[2022-09-02] MEDS: Lantiseptic Ointment 130 GM JAR TOP SCH ×2 (09:33→20:55)
[2022-09-02 19:41] LABS: Bilirubin Negative (Negative); Blood, Urine Negative (Negative); Clarity Clear (Clear); Glucose, Urine (Dipstick) Negative (Negative); Ketone, Urine Trace mg/dL (Negative); Leukocyte Negative (Negative); Nitrite Negative (Negative); Protein, Urine (Dipstick) Negative (Neg-Trace)
[2022-09-02 19:42] LABS: Urine Culture Reflex No No
[2022-09-02 19:47] LABS: Bacteria/HPF Rare-Few HPF (None Seen); Calcium Oxalate Crystals Rare HPF (None Seen); RBC/HPF 0-3 HPF (0-3); Sperm/HPF 3+ HPF (None Seen); Squamous Epithelial 0-3 HPF (0-3); WBC/HPF 0-3 HPF (0-3)
[2022-09-02] MEDS: Latanoprost 0.005% Ophth Soln 2.5 ml Bottle EA EYE SCH (20:42)
[2022-09-03] MEDS: Amlodipine 5 MG TAB PO SCH (08:22)
[2022-09-03] MEDS: Aspirin 81 mg Enteric Coated Tablet PO SCH ×2 (08:23→20:38)
[2022-09-03] MEDS: Lantiseptic Ointment 130 GM JAR TOP SCH ×2 (08:23→20:46)
[2022-09-03] MEDS: Ferrous Sulfate 325 MG TAB PO SCH (08:23)
[2022-09-03] MEDS: Emollient 15 oz bottle 450 ML, Triamcinolone Acetonide 200 MG TOP SCH ×2 (08:24→20:46)
[2022-09-03] MEDS: Brimonidine Tartrate 0.2% Ophth Soln 5 ml Bottle EA EYE SCH ×2 (08:47→21:21)
[2022-09-03] MEDS: Timolol 0.5% Ophth Soln 5 ml Bottle EA EYE SCH ×2 (08:47→21:45)
[2022-09-03] MEDS: Brinzolamide 1% Ophth SUSP 10 ml Bottle EA EYE SCH ×2 (08:48→20:39)
[2022-09-03] MEDS: Latanoprost 0.005% Ophth Soln 2.5 ml Bottle EA EYE SCH ×2 (21:51→21:59)
[2022-09-04] MEDS: Brinzolamide 1% Ophth SUSP 10 ml Bottle EA EYE SCH ×2 (08:23→20:24)
[2022-09-04] MEDS: Amlodipine 5 MG TAB PO SCH (08:23)
[2022-09-04] MEDS: Brimonidine Tartrate 0.2% Ophth Soln 5 ml Bottle EA EYE SCH ×2 (08:24→20:24)
[2022-09-04] MEDS: Lantiseptic Ointment 130 GM JAR TOP SCH ×2 (08:24→20:25)
[2022-09-04] MEDS: Aspirin 81 mg Enteric Coated Tablet PO SCH ×2 (08:24→20:21)
[2022-09-04] MEDS: Emollient 15 oz bottle 450 ML, Triamcinolone Acetonide 200 MG TOP SCH ×2 (08:24→20:25)
[2022-09-04] MEDS: Ferrous Sulfate 325 MG TAB PO SCH (08:24)
[2022-09-04] MEDS: Timolol 0.5% Ophth Soln 5 ml Bottle EA EYE SCH ×2 (08:24→20:22)
[2022-09-04] MEDS: Latanoprost 0.005% Ophth Soln 2.5 ml Bottle EA EYE SCH (20:22)
[2022-09-05] MEDS: Aspirin 81 mg Enteric Coated Tablet PO SCH ×2 (08:25→20:38)
[2022-09-05] MEDS: Amlodipine 5 MG TAB PO SCH (08:25)
[2022-09-05] MEDS: Ferrous Sulfate 325 MG TAB PO SCH (08:25)
[2022-09-05] MEDS: Brinzolamide 1% Ophth SUSP 10 ml Bottle EA EYE SCH ×2 (08:26→20:37)
[2022-09-05] MEDS: Lantiseptic Ointment 130 GM JAR TOP SCH ×2 (08:26→20:39)
[2022-09-05] MEDS: Brimonidine Tartrate 0.2% Ophth Soln 5 ml Bottle EA EYE SCH ×2 (08:26→20:37)
[2022-09-05] MEDS: Emollient 15 oz bottle 450 ML, Triamcinolone Acetonide 200 MG TOP SCH ×2 (08:34→20:40)
[2022-09-05] MEDS: Timolol 0.5% Ophth Soln 5 ml Bottle EA EYE SCH ×2 (08:34→20:37)
[2022-09-05] MEDS: Acetaminophen 325 MG TAB PO PRN ×2 (12:14→20:38)
[2022-09-05] MEDS: Latanoprost 0.005% Ophth Soln 2.5 ml Bottle EA EYE SCH (20:37)
[2022-09-06] MEDS: Amlodipine 5 MG TAB PO SCH (08:02)
[2022-09-06] MEDS: Aspirin 81 mg Enteric Coated Tablet PO SCH ×2 (08:02→20:26)
[2022-09-06] MEDS: Brinzolamide 1% Ophth SUSP 10 ml Bottle EA EYE SCH ×2 (08:03→20:27)
[2022-09-06] MEDS: Ferrous Sulfate 325 MG TAB PO SCH (08:03)
[2022-09-06] MEDS: Timolol 0.5% Ophth Soln 5 ml Bottle EA EYE SCH ×2 (08:04→20:27)
[2022-09-06] MEDS: Brimonidine Tartrate 0.2% Ophth Soln 5 ml Bottle EA EYE SCH ×2 (08:04→20:27)
[2022-09-06] MEDS: Lantiseptic Ointment 130 GM JAR TOP SCH ×2 (08:05→20:27)
[2022-09-06] MEDS: Emollient 15 oz bottle 450 ML, Triamcinolone Acetonide 200 MG TOP SCH ×2 (08:05→20:28)
[2022-09-06] MEDS: Latanoprost 0.005% Ophth Soln 2.5 ml Bottle EA EYE SCH (20:28)
[2022-09-07] MEDS: Brinzolamide 1% Ophth SUSP 10 ml Bottle EA EYE SCH ×2 (08:15→20:27)
[2022-09-07] MEDS: Aspirin 81 mg Enteric Coated Tablet PO SCH ×2 (08:15→20:26)
[2022-09-07] MEDS: Ferrous Sulfate 325 MG TAB PO SCH (08:15)
[2022-09-07] MEDS: Brimonidine Tartrate 0.2% Ophth Soln 5 ml Bottle EA EYE SCH ×2 (08:15→20:27)
[2022-09-07] MEDS: Amlodipine 5 MG TAB PO SCH (08:15)
[2022-09-07] MEDS: Emollient 15 oz bottle 450 ML, Triamcinolone Acetonide 200 MG TOP SCH ×2 (08:16→20:28)
[2022-09-07] MEDS: Lantiseptic Ointment 130 GM JAR TOP SCH ×2 (08:17→20:28)
[2022-09-07] MEDS: Timolol 0.5% Ophth Soln 5 ml Bottle EA EYE SCH ×2 (08:18→20:27)
[2022-09-07] MEDS: Latanoprost 0.005% Ophth Soln 2.5 ml Bottle EA EYE SCH (20:27)
[2022-09-08] MEDS: Brinzolamide 1% Ophth SUSP 10 ml Bottle EA EYE SCH ×2 (08:20→20:26)
[2022-09-08] MEDS: Lantiseptic Ointment 130 GM JAR TOP SCH ×2 (08:21→21:00)
[2022-09-08] MEDS: Timolol 0.5% Ophth Soln 5 ml Bottle EA EYE SCH ×2 (08:21→20:24)
[2022-09-08] MEDS: Aspirin 81 mg Enteric Coated Tablet PO SCH ×2 (08:21→20:24)
[2022-09-08] MEDS: Brimonidine Tartrate 0.2% Ophth Soln 5 ml Bottle EA EYE SCH ×2 (08:21→20:25)
[2022-09-08] MEDS: Ferrous Sulfate 325 MG TAB PO SCH (08:21)
[2022-09-08] MEDS: Amlodipine 5 MG TAB PO SCH (08:21)
[2022-09-08] MEDS: Emollient 15 oz bottle 450 ML, Triamcinolone Acetonide 200 MG TOP SCH ×2 (08:22→21:00)
[2022-09-08] MEDS: Latanoprost 0.005% Ophth Soln 2.5 ml Bottle EA EYE SCH (20:25)
[2022-09-09] MEDS: Aspirin 81 mg Enteric Coated Tablet PO SCH ×2 (08:23→20:14)
[2022-09-09] MEDS: Amlodipine 5 MG TAB PO SCH (08:23)
[2022-09-09] MEDS: Ferrous Sulfate 325 MG TAB PO SCH (08:23)
[2022-09-09] MEDS: Timolol 0.5% Ophth Soln 5 ml Bottle EA EYE SCH ×2 (08:24→20:14)
[2022-09-09] MEDS: Brinzolamide 1% Ophth SUSP 10 ml Bottle EA EYE SCH ×2 (08:24→20:14)
[2022-09-09] MEDS: Brimonidine Tartrate 0.2% Ophth Soln 5 ml Bottle EA EYE SCH ×2 (08:24→20:14)
[2022-09-09] MEDS: Lantiseptic Ointment 130 GM JAR TOP SCH ×2 (08:25→20:15)
[2022-09-09] MEDS: Emollient 15 oz bottle 450 ML, Triamcinolone Acetonide 200 MG TOP SCH ×2 (08:26→20:17)
[2022-09-09] MEDS: Latanoprost 0.005% Ophth Soln 2.5 ml Bottle EA EYE SCH (20:14)
[2022-09-10] MEDS: Ferrous Sulfate 325 MG TAB PO SCH (08:32)
[2022-09-10] MEDS: Amlodipine 5 MG TAB PO SCH (08:32)
[2022-09-10] MEDS: Brimonidine Tartrate 0.2% Ophth Soln 5 ml Bottle EA EYE SCH ×2 (08:33→20:29)
[2022-09-10] MEDS: Aspirin 81 mg Enteric Coated Tablet PO SCH ×2 (08:33→20:04)
[2022-09-10] MEDS: Emollient 15 oz bottle 450 ML, Triamcinolone Acetonide 200 MG TOP SCH ×2 (08:36→20:31)
[2022-09-10] MEDS: Timolol 0.5% Ophth Soln 5 ml Bottle EA EYE SCH ×2 (08:36→20:30)
[2022-09-10] MEDS: Brinzolamide 1% Ophth SUSP 10 ml Bottle EA EYE SCH ×2 (08:37→20:04)
[2022-09-10] MEDS: Lantiseptic Ointment 130 GM JAR TOP SCH ×2 (08:37→20:06)
[2022-09-10] MEDS: Latanoprost 0.005% Ophth Soln 2.5 ml Bottle EA EYE SCH (20:04)
[2022-09-11] MEDS: Aspirin 81 mg Enteric Coated Tablet PO SCH ×2 (08:03→20:20)
[2022-09-11] MEDS: Amlodipine 5 MG TAB PO SCH (08:03)
[2022-09-11] MEDS: Ferrous Sulfate 325 MG TAB PO SCH (08:03)
[2022-09-11] MEDS: Emollient 15 oz bottle 450 ML, Triamcinolone Acetonide 200 MG TOP SCH ×2 (08:05→21:01)
[2022-09-11] MEDS: Lantiseptic Ointment 130 GM JAR TOP SCH ×2 (08:05→20:23)
[2022-09-11] MEDS: Brimonidine Tartrate 0.2% Ophth Soln 5 ml Bottle EA EYE SCH ×2 (08:06→20:21)
[2022-09-11] MEDS: Timolol 0.5% Ophth Soln 5 ml Bottle EA EYE SCH ×2 (08:06→20:22)
[2022-09-11] MEDS: Brinzolamide 1% Ophth SUSP 10 ml Bottle EA EYE SCH ×2 (08:07→20:20)
[2022-09-11] MEDS ORDERED: Loperamide HCl 2 MG CAP PO SCH (15:30)
[2022-09-11] MEDS: Latanoprost 0.005% Ophth Soln 2.5 ml Bottle EA EYE SCH (20:22)
[2022-09-12] MEDS: Timolol 0.5% Ophth Soln 5 ml Bottle EA EYE SCH ×2 (08:26→20:19)
[2022-09-12] MEDS: Brinzolamide 1% Ophth SUSP 10 ml Bottle EA EYE SCH ×2 (08:26→19:58)
[2022-09-12] MEDS: Aspirin 81 mg Enteric Coated Tablet PO SCH ×2 (08:26→20:19)
[2022-09-12] MEDS: Amlodipine 5 MG TAB PO SCH (08:26)
[2022-09-12] MEDS: Ferrous Sulfate 325 MG TAB PO SCH (08:26)
[2022-09-12] MEDS: Brimonidine Tartrate 0.2% Ophth Soln 5 ml Bottle EA EYE SCH ×2 (08:26→20:19)
[2022-09-12] MEDS: Emollient 15 oz bottle 450 ML, Triamcinolone Acetonide 200 MG TOP SCH ×2 (09:06→20:21)
[2022-09-12] MEDS: Lantiseptic Ointment 130 GM JAR TOP SCH ×2 (09:06→20:20)
[2022-09-12] MEDS: Loperamide HCl 2 MG CAP PO PRN (12:04)
[2022-09-12] MEDS: Latanoprost 0.005% Ophth Soln 2.5 ml Bottle EA EYE SCH (20:16)
[2022-09-13] MEDS: Amlodipine 5 MG TAB PO SCH (08:37)
[2022-09-13] MEDS: Ferrous Sulfate 325 MG TAB PO SCH (08:37)
[2022-09-13] MEDS: Brimonidine Tartrate 0.2% Ophth Soln 5 ml Bottle EA EYE SCH ×2 (08:37→21:00)
[2022-09-13] MEDS: Aspirin 81 mg Enteric Coated Tablet PO SCH ×2 (08:37→19:51)
[2022-09-13] MEDS: Lantiseptic Ointment 130 GM JAR TOP SCH ×2 (08:39→19:54)
[2022-09-13] MEDS: Brinzolamide 1% Ophth SUSP 10 ml Bottle EA EYE SCH ×2 (08:40→21:01)
[2022-09-13] MEDS: Timolol 0.5% Ophth Soln 5 ml Bottle EA EYE SCH ×2 (08:40→21:00)
[2022-09-13] MEDS: Emollient 15 oz bottle 450 ML, Triamcinolone Acetonide 200 MG TOP SCH ×2 (08:40→21:01)
[2022-09-13 14:08] VITALS: BMI 19.7
[2022-09-13] MEDS: Loperamide HCl 2 MG CAP PO PRN ×2 (19:51→22:09)
[2022-09-13] MEDS: Latanoprost 0.005% Ophth Soln 2.5 ml Bottle EA EYE SCH (21:00)
[2022-09-14] MEDS: Amlodipine 5 MG TAB PO SCH (09:08)
[2022-09-14] MEDS: Brimonidine Tartrate 0.2% Ophth Soln 5 ml Bottle EA EYE SCH ×2 (09:08→20:16)
[2022-09-14] MEDS: Aspirin 81 mg Enteric Coated Tablet PO SCH ×2 (09:08→20:15)
[2022-09-14] MEDS: Ferrous Sulfate 325 MG TAB PO SCH (09:08)
[2022-09-14] MEDS: Brinzolamide 1% Ophth SUSP 10 ml Bottle EA EYE SCH ×2 (09:09→20:15)
[2022-09-14] MEDS: Timolol 0.5% Ophth Soln 5 ml Bottle EA EYE SCH ×2 (09:09→20:15)
[2022-09-14] MEDS: Emollient 15 oz bottle 450 ML, Triamcinolone Acetonide 200 MG TOP SCH ×2 (09:10→20:35)
[2022-09-14] MEDS: Lantiseptic Ointment 130 GM JAR TOP SCH ×2 (09:11→20:17)
[2022-09-14] MEDS: Latanoprost 0.005% Ophth Soln 2.5 ml Bottle EA EYE SCH (20:15)
[2022-09-15] MEDS: Timolol 0.5% Ophth Soln 5 ml Bottle EA EYE SCH ×2 (08:32→20:01)
[2022-09-15] MEDS: Brinzolamide 1% Ophth SUSP 10 ml Bottle EA EYE SCH ×2 (08:34→20:02)
[2022-09-15] MEDS: Aspirin 81 mg Enteric Coated Tablet PO SCH ×2 (08:34→20:02)
[2022-09-15] MEDS: Brimonidine Tartrate 0.2% Ophth Soln 5 ml Bottle EA EYE SCH ×2 (08:34→20:05)
[2022-09-15] MEDS: Amlodipine 5 MG TAB PO SCH (08:34)
[2022-09-15] MEDS: Ferrous Sulfate 325 MG TAB PO SCH (08:35)
[2022-09-15 08:42] LABS: Mean Corpuscular HGB CONC 33.2 g/dL (32.0-36.0); Mean Corpuscular Hemoglobin 32.9 pg (27.0-31.0); Mean Corpuscular Volume 99.2 fl (78.0-98.0); Mean Platelet Volume 10.9 fL (7.4-10.4); Platelet Count 317 thou/uL (130-400); RBC Distribution Width 13.3 % (11.5-14.5); Red Blood Cell (RBC) Count 3.96 mill/uL (4.70-6.10); White Blood Cell (WBC) Count 8.1 thou/uL (4.8-10.8)
[2022-09-15] MEDS: Emollient 15 oz bottle 450 ML, Triamcinolone Acetonide 200 MG TOP SCH ×2 (08:45→20:05)
[2022-09-15] MEDS: Lantiseptic Ointment 130 GM JAR TOP SCH ×2 (08:46→20:05)
[2022-09-15] MEDS: Latanoprost 0.005% Ophth Soln 2.5 ml Bottle EA EYE SCH (20:04)
[2022-09-16] MEDS: Timolol 0.5% Ophth Soln 5 ml Bottle EA EYE SCH ×2 (08:47→20:44)
[2022-09-16] MEDS: Aspirin 81 mg Enteric Coated Tablet PO SCH ×2 (08:48→20:44)
[2022-09-16] MEDS: Lantiseptic Ointment 130 GM JAR TOP SCH ×2 (08:48→20:45)
[2022-09-16] MEDS: Brinzolamide 1% Ophth SUSP 10 ml Bottle EA EYE SCH ×2 (08:48→20:45)
[2022-09-16] MEDS: Amlodipine 5 MG TAB PO SCH (08:48)
[2022-09-16] MEDS: Ferrous Sulfate 325 MG TAB PO SCH (08:48)
[2022-09-16] MEDS: Emollient 15 oz bottle 450 ML, Triamcinolone Acetonide 200 MG TOP SCH ×2 (08:48→20:46)
[2022-09-16] MEDS: Brimonidine Tartrate 0.2% Ophth Soln 5 ml Bottle EA EYE SCH ×2 (08:48→20:45)
[2022-09-16] MEDS: Latanoprost 0.005% Ophth Soln 2.5 ml Bottle EA EYE SCH (20:44)
[2022-09-17] MEDS: Brinzolamide 1% Ophth SUSP 10 ml Bottle EA EYE SCH ×2 (08:37→20:43)
[2022-09-17] MEDS: Ferrous Sulfate 325 MG TAB PO SCH (08:38)
[2022-09-17] MEDS: Aspirin 81 mg Enteric Coated Tablet PO SCH ×2 (08:38→20:42)
[2022-09-17] MEDS: Lantiseptic Ointment 130 GM JAR TOP SCH ×2 (08:38→20:43)
[2022-09-17] MEDS: Emollient 15 oz bottle 450 ML, Triamcinolone Acetonide 200 MG TOP SCH ×2 (08:38→20:43)
[2022-09-17] MEDS: Amlodipine 5 MG TAB PO SCH (08:38)
[2022-09-17] MEDS: Timolol 0.5% Ophth Soln 5 ml Bottle EA EYE SCH ×2 (08:38→20:42)
[2022-09-17] MEDS: Brimonidine Tartrate 0.2% Ophth Soln 5 ml Bottle EA EYE SCH ×2 (08:38→20:42)
[2022-09-17] MEDS: Latanoprost 0.005% Ophth Soln 2.5 ml Bottle EA EYE SCH (20:42)
[2022-09-18] MEDS: Acetaminophen 325 MG TAB PO PRN (04:56)
[2022-09-18] MEDS: Timolol 0.5% Ophth Soln 5 ml Bottle EA EYE SCH ×2 (08:39→20:13)
[2022-09-18] MEDS: Brimonidine Tartrate 0.2% Ophth Soln 5 ml Bottle EA EYE SCH ×2 (08:40→20:12)
[2022-09-18] MEDS: Aspirin 81 mg Enteric Coated Tablet PO SCH ×2 (08:40→20:12)
[2022-09-18] MEDS: Ferrous Sulfate 325 MG TAB PO SCH (08:40)
[2022-09-18] MEDS: Brinzolamide 1% Ophth SUSP 10 ml Bottle EA EYE SCH ×2 (08:40→20:12)
[2022-09-18] MEDS: Amlodipine 5 MG TAB PO SCH (08:40)
[2022-09-18] MEDS: Emollient 15 oz bottle 450 ML, Triamcinolone Acetonide 200 MG TOP SCH ×2 (08:42→20:17)
[2022-09-18] MEDS: Lantiseptic Ointment 130 GM JAR TOP SCH ×2 (08:43→20:14)
[2022-09-18] MEDS: Latanoprost 0.005% Ophth Soln 2.5 ml Bottle EA EYE SCH (20:12)
[2022-09-19] MEDS: Ferrous Sulfate 325 MG TAB PO SCH (08:14)
[2022-09-19] MEDS: Timolol 0.5% Ophth Soln 5 ml Bottle EA EYE SCH ×2 (08:14→20:37)
[2022-09-19] MEDS: Aspirin 81 mg Enteric Coated Tablet PO SCH ×2 (08:14→20:37)
[2022-09-19] MEDS: Brinzolamide 1% Ophth SUSP 10 ml Bottle EA EYE SCH ×2 (08:14→20:36)
[2022-09-19] MEDS: Amlodipine 5 MG TAB PO SCH (08:14)
[2022-09-19] MEDS: Brimonidine Tartrate 0.2% Ophth Soln 5 ml Bottle EA EYE SCH ×2 (08:14→20:37)
[2022-09-19] MEDS: Lantiseptic Ointment 130 GM JAR TOP SCH ×2 (08:15→20:38)
[2022-09-19] MEDS: Emollient 15 oz bottle 450 ML, Triamcinolone Acetonide 200 MG TOP SCH ×2 (08:15→20:40)
[2022-09-19] MEDS: Latanoprost 0.005% Ophth Soln 2.5 ml Bottle EA EYE SCH (20:36)
[2022-09-20] MEDS: Lantiseptic Ointment 130 GM JAR TOP SCH (08:11)
[2022-09-20] MEDS: Brinzolamide 1% Ophth SUSP 10 ml Bottle EA EYE SCH (08:11)
[2022-09-20] MEDS: Ferrous Sulfate 325 MG TAB PO SCH (08:11)
[2022-09-20] MEDS: Timolol 0.5% Ophth Soln 5 ml Bottle EA EYE SCH (08:11)
[2022-09-20] MEDS: Amlodipine 5 MG TAB PO SCH (08:11)
[2022-09-20] MEDS: Brimonidine Tartrate 0.2% Ophth Soln 5 ml Bottle EA EYE SCH (08:11)
[2022-09-20] MEDS: Aspirin 81 mg Enteric Coated Tablet PO SCH (08:11)
[2022-09-20] MEDS: Emollient 15 oz bottle 450 ML, Triamcinolone Acetonide 200 MG TOP SCH (08:11)
[2022-09-20 15:43] VITALS: BP 132/81; TEMP 98.4
== END 2022-09-20 15:45 | disposition home health service (06) | DRG 948 ==
LOC: MADMS 17:07 → UNDOADMIN 18:55
PROVIDERS: ADMIT Family Medicine; ATTEND Family Medicine
DX: R53.81 Other malaise (principal); R53.1 Weakness; Z20.822 Contact with and (suspected) exposure to COVID-19; Z66 Do not resuscitate; I10 Essential (primary) hypertension; H40.9 Unspecified glaucoma; Z96.642 Presence of left artificial hip joint; H54.7 Unspecified visual loss; D64.9 Anemia, unspecified; K59.00 Constipation, unspecified; Z79.899 Other long term (current) drug therapy; Z79.82 Long term (current) use of aspirin; Z90.49 Acquired absence of other specified parts of digestive tract; Z98.49 Cataract extraction status, unspecified eye
CPT/HCPCS: 36415; 80048; 81001; 85025; 85027; 87811; J3301

== ENCOUNTER 2023-12-10 09:40 | Emergency (ER) | payer MEDICARE, MEDICAID ==
[2023-12-10] MEDS ORDERED: Acetaminophen 500 MG TAB ONE (10:08)
[2023-12-10 10:25] LABS: #Basophils 0.1 thou/uL (0.0-0.2); #Lymphocytes 2.2 thou/uL (1.20-3.40); #Monocytes 2.2 thou/uL (0.11-0.59); #Neutrophils 11.9 thou/uL (1.40-6.50); %Basophils 0.9 % (0.0-1.0); %Eosinophils 0.3 % (0.0-10.0); %Lymphocytes 13.2 % (21.0-51.0); %Monocytes 13.3 % (0.0-10.0); %Neutrophils 72.3 % (42.0-75.0); Hematocrit 46.7 % (42.0-52.0); Hemoglobin 15.1 g/dL (14.0-18.0); Mean Corpuscular HGB CONC 32.3 g/dL (32.0-36.0); Mean Corpuscular Hemoglobin 31.3 pg (27.0-31.0); Mean Corpuscular Volume 97.1 fl (78.0-98.0); Mean Platelet Volume 12.7 fL (7.4-10.4); Platelet Count 244 10x3/uL (130-400); RBC Distribution Width 13.3 % (11.5-14.5); Red Blood Cell (RBC) Count 4.81 mill/uL (4.70-6.10); White Blood Cell (WBC) Count 16.5 10x3/uL (4.8-10.8)
[2023-12-10 10:37] LABS: ALT (SGPT) 15 U/L (8-55); AST (SGOT) 35 U/L (5-34); Alkaline Phosphatase 93 U/L (40-110); Anion Gap 14 mmol/L (10-20); BUN (Urea Nitrogen) 22 mg/dL (8.4-25.7); Bilirubin, Total 1.8 mg/dL (0.2-1.2); CK (CPK) 1171 U/L (30-200); Calc. Creatinine Clearance 0 mL/min (70-130); Calcium 9.2 mg/dL (7.8-10.44); Carbon Dioxide 25 mmol/L (23-31); Chloride 107 mmol/L (98-107); Estimated GFR 85; Globulin 3.2 g/dL (2.4-3.5); Glucose 101 mg/dL (83-110); Potassium 3.9 mmol/L (3.5-5.1); Protein, Total 7.2 g/dL (5.8-8.1); Sodium 142 mmol/L (136-145)
[2023-12-10 10:42] LABS: Giant Platelets SLIGHT HPF (0-5); Large Platelets SLIGHT (None Seen)
[2023-12-10 11:09] LABS: Bilirubin Negative (Negative); Blood, Urine Small (Negative); Clarity Clear (Clear); Glucose, Urine (Dipstick) Negative (Negative); Ketone, Urine 40 mg/dL (Negative); Leukocyte Negative (Negative); Nitrite Negative (Negative); Protein, Urine (Dipstick) 100 mg/dL (Neg-Trace)
[2023-12-10 11:23] LABS: Bacteria/HPF Rare-Few HPF (None Seen); CAUTI Indications for Culture Alt mental st,lethar; Mucous/LPF 2+ LPF (<2+); RBC/HPF None Seen HPF (0-3); Squamous Epithelial 0-3 HPF (0-3); Urine Culture Reflex No No; WBC/HPF 0-3 HPF (0-3)
== END 2023-12-10 13:18 | disposition short-term general hospital (02) ==
LOC: MADERS 09:40
DX: S72.141A Displaced intertrochanteric fracture of right femur, initial encounter for closed fracture (principal); M62.82 Rhabdomyolysis; I10 Essential (primary) hypertension; Z79.899 Other long term (current) drug therapy; Z79.82 Long term (current) use of aspirin; W19.XXXA Unspecified fall, initial encounter
CPT/HCPCS: 36415; 70450; 72125; 80053; 81001; 82550; 85025; 93005; 96360

== ENCOUNTER 2025-07-22 13:48 | Emergency (ER) | payer MEDICARE, MEDICAID ==
[2025-07-22 14:25] LABS: #Basophils 0.1 thou/uL (0.0-0.2); #Eosinophils 0.6 thou/uL (0.0-0.7); #Lymphocytes 2.4 thou/uL (1.20-3.40); #Monocytes 1.2 thou/uL (0.11-0.59); #Neutrophils 6.7 thou/uL (1.40-6.50); %Basophils 1.0 % (0.0-1.0); %Eosinophils 5.1 % (0.0-10.0); %Lymphocytes 21.6 % (21.0-51.0); %Monocytes 11.1 % (0.0-10.0); %Neutrophils 61.2 % (42.0-75.0); Hematocrit 46.9 % (42.0-52.0); Hemoglobin 15.0 g/dL (14.0-18.0); Mean Corpuscular Hemoglobin 31.7 pg (27.0-31.0); Mean Corpuscular Volume 99.5 fl (78.0-98.0); Platelet Count 256 10x3/uL (130-400); Red Blood Cell (RBC) Count 4.72 mill/uL (4.70-6.10); White Blood Cell (WBC) Count 11.0 10x3/uL (4.8-10.8)
[2025-07-22 14:39] LABS: Acetaminophen Less than 10 mcg/mL (Less than 10); Lipase 10 U/L (8-78); Salicylate Less than 8.0 mg/dL (Less than 8.0)
[2025-07-22 14:41] LABS: ALT (SGPT) Less than 7 U/L (Less than 45); AST (SGOT) 17 U/L (11-34); Albumin 4.3 g/dL (3.1-4.5); Alkaline Phosphatase 106 U/L (40-110); Anion Gap 18 mmol/L (10-20); BUN (Urea Nitrogen) 26 mg/dL (8.4-25.7); Bilirubin, Total 1.3 mg/dL (0.3-1.2); Calc. Creatinine Clearance 0 mL/min (70-130); Calcium 9.4 mg/dL (7.8-10.44); Carbon Dioxide 21 mmol/L (23-31); Chloride 109 mmol/L (98-107); Globulin 3.5 g/dL (2.4-3.5); Glucose 107 mg/dL (83-110); Potassium 3.8 mmol/L (3.5-5.1); Sodium 144 mmol/L (136-145)
[2025-07-22 14:42] LABS: Troponin I 0.013 ng/mL (< 0.028)
[2025-07-22 15:36] LABS: Glucose, Urine (Dipstick) Negative (Negative); Leukocyte Negative (Negative); Protein, Urine (Dipstick) 100 mg/dL (Neg-Trace); Specific Gravity, Urine Greater/Equal 1.030 (1.005-1.030)
[2025-07-22 15:40] LABS: Bacteria/HPF Rare-Few HPF (None Seen); CAUTI Indications for Culture Fever or rigors; RBC/HPF 0-3 HPF (0-3); WBC/HPF 0-3 HPF (0-3)
[2025-07-22 15:41] LABS: Urine Culture Reflex No No
[2025-07-22 15:45] LABS: Cocaine Metabolite Screen Negative (Negative); THC/Cannabinoid Screen Negative (Negative); Tricyclic Screen Negative (Negative)
== END 2025-07-22 18:31 | disposition short-term general hospital (02) ==
LOC: MADERS 13:48
DX: R41.82 Altered mental status, unspecified (principal); I10 Essential (primary) hypertension; E03.9 Hypothyroidism, unspecified
CPT/HCPCS: 36415; 70450; 71045; 80053; 80306; 80307; 81001; 82140; 83690; 84443; 84484; 85025; 87426; 93005; 94760; 96360; J7030